=== PATIENT | male | born 1955 | race Caucasian/White ===

== ENCOUNTER 2016-06-21 20:10 | Emergency (ER) ==
[2016-06-21 20:33] VITALS: BP 182/89
[2016-06-21] MEDS ORDERED: NORVASC PO ONE (20:58)
--- NOTE | 2016-06-21 21:02 | PROVIDER DOCUMENTATION ---
HPI-General Adult - General Chief Complaint: General Adult Stated Complaint: ANEURYSM/TENDER CHEST Time Seen by Provider: 06/21/16 20:50 Source: patient Allergies/Adverse Reactions: Patient Allergies Allergy/AdvReac Type Severity Reaction Status Date / Time No Known Allergies Allergy Verified 06/18/15 22:55 Home Medications: Metoprolol [Lopressor] 50 mg PO TID 06/26/13 - History of Present Illness -Gen Adult Nature of Presenting Problems: 60 y/o WM presents to the ED with tenderness of his left chest wall when he pushed on it this morning. 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 He thinks it is on an artery on the heart. Pt denies fever but has a cough which he says is normal for him. Location of Pain/Injury: reports: chest (left chest) Quality of Pain: reports: other (tender to touch) Severity: reports: mild, moderate Onset/Duration: reports: this morning Timing: reports: still present Context/Activities at Onset: reports: none Modifying Factors: improves with: nothing Similar Symptoms Previously?: Yes Recently seen or treated by another doctor?: No Review of Systems - Adult - REVIEW OF SYSTEMS - ADULT Constitutional: denies: chills, fever Eyes: reports: no symptoms reported Ears, Nose, Mouth & Throat: reports: no symptoms reported Cardiovascular: reports: chest pain. denies: edema, orthopnea, palpitations, poor circulation, syncope Respiratory: reports: cough. denies: shortness of breath, wheezing Gastrointestinal: denies: abdominal pain, nausea, vomiting Genitourinary: reports: no symptoms reported Musculoskeletal: reports: no symptoms reported Integumentary: reports: no symptoms reported Neurological: reports: no symptoms reported Psychiatric: reports: no symptoms reported Endocrine: reports: no symptoms reported Hematologic/Lymphatic: reports: no symptoms reported Allergic/Immunologic: reports: no symptoms reported All Other Systems: Reviewed and Negative Past History - Adult - PAST MEDICAL HISTORY-ADULT Review of Records: reports: Old Records Reviewed, Nursing Assessment Review, Medications Reviewed Major Childhood Illnesses: reports: denies history Cardiovascular: reports: aortic disease, CAD, HTN, hyperlipidemia Respiratory: reports: denies history Gastrointestinal: reports: other (vomits every morning) Genitourinary: reports: denies history Musculoskeletal: reports: chronic pain, neck/back injury Neurological: reports: denies history Psychiatric: reports: depression Endocrine/Immune: reports: denies history Other Conditions: reports: denies history - PRIOR SURGERIES/PROCEDURES Surgical/Procedure History: reports: CABG, cholecystectomy - PRIOR HOSPITALIZATIONS Prior Hospitalizations: reports: none - IMMUNIZATION STATUS Childhood Immunizations: See Nurse Assessment Flu Vaccine: See Nurse Assessment - FAMILY HISTORY Family History: reviewed, not pertinent - SOCIAL HISTORY Smoking: non-smoker, quit greater than 1 year Substance Use: marijuana Living Situation: family Physical Exam-General - PHYSICAL EXAM-ADULT Initial Vital Signs Reviewed: Yes - CONSTITUTIONAL General Appearance: appears well, alert, no apparent distress - EYES Eyes: PERRL/EOMI, pink conjunctivae - HEAD, EARS, NOSE, MOUTH & THROAT HENMT: moist mucous membranes, normal ENT inspection, TMs normal, pharynx normal - NECK Neck: non-tender, full range of motion, supple, normal inspection - RESPIRATORY Respiratory: no respiratory distress, no accessory muscle use, crackles (left anterior and bilateral posterior). negative: lungs clear - CARDIOVASCULAR Cardiovascular: normal peripheral pulses, regular rate, rhythm, no edema, systolic murmur (1/6 ejection) - GASTROINTESTINAL (ABDOMEN) Abdominal Exam: normal bowel sounds, non tender, soft - MUSCULOSKELETAL Back Exam: normal inspection, no CVA tenderness, no vertebral tenderness Extremity: normal range of motion, non-tender, normal gait, normal inspection, no pedal edema - SKIN Integumentary: normal color, normal turgor, warm/dry - NEUROLOGIC Neurologic: grossly normal, no motor/sensory deficits - PSYCHIATRIC Psych/Mental Status: normal mood/affect, normal thought content, normal thought process, oriented x 3 Progress - PLAN OF CARE/RESULTS Progress/Plan/Lab Results: Orders Category Date Time Status Amlodipine [Norvasc] Med 06/21/16 20:58 Discontinued 10 mg PO NOW ONE Carvedilol [Coreg] Med 06/21/16 21:16 Discontinued 12.5 mg PO NOW ONE Vital Signs Temp Pulse Resp BP Pulse Ox 06/21/16 20:30 98 F 72 18 182/89 98 No Known Allergies Allergy (Verified 06/18/15 22:55) Metoprolol [Lopressor] 50 mg PO TID 06/26/13 Lisinopril 20 mg PO BID #120 tablet 05/27/14 Amlodipine [Norvasc] 5 mg PO DAILY #90 tablet 01/08/16 Clonidine HCl 0.1 mg PO Q4HR PRN #30 tablet 06/19/15 Amlodipine [Norvasc] 10 mg PO DAILY #30 tablet 06/21/16 Carvedilol [Coreg] 12.5 mg PO BID #60 tablet 06/21/16 Departure - Departure Time of Disposition Order: 21:20 DIAGNOSIS: Uncontrolled hypertension, Chest pain Disposition: [place] [id number] Certified Medical Emergency: Emergent Condition: Stable Prescriptions: Carvedilol [Coreg] 12.5 mg PO BID #60 tablet Amlodipine [Norvasc] 10 mg PO DAILY #30 tablet Attestation - Scribe Verification/Attestation Scribe:: Rasta Aguirre Acting as Scribe for:: Juni Khan Scribe documention review:: This chart was documented by a scribe and accurately reflects the service the provider performed and the decisions made by the provider.
[2016-06-21] MEDS ORDERED: COREG PO ONE (21:16)
== END 2016-06-21 22:27 | disposition left against medical advice (07) ==
LOC: P.ED 20:10
DX: I10 Essential (primary) hypertension (principal); R07.89 Other chest pain; I25.10 Atherosclerotic heart disease of native coronary artery without angina pectoris; E78.5 Hyperlipidemia, unspecified; G89.29 Other chronic pain; F32.9 Major depressive disorder, single episode, unspecified; Z95.1 Presence of aortocoronary bypass graft; Z79.899 Other long term (current) drug therapy; Z87.891 Personal history of nicotine dependence
CPT/HCPCS: 99282